=== PATIENT | male | born 1995 | race African-American/Black ===

== ENCOUNTER 2018-10-05 14:55 | Emergency (ER) | payer SELFPAY ==
[2018-10-05] MEDS ORDERED: NORMAL SALINE 1000 ML 1,000 ML IV ONE ×2 (15:11→16:40)
[2018-10-05] MEDS ORDERED: ONDANSETRON HCL INJ/PF 4 MG/2 ML SDV IV ONE (15:11)
[2018-10-05] MEDS ORDERED: FENTANYL CITRATE INJ/PF 100 MCG/2 ML AMPUL IV ONE (15:11)
--- NOTE | 2018-10-05 15:12 | ER Document Report ---
ED Medical Screen (RME) - General Chief Complaint: Abdominal Pain Stated Complaint: ABDOMINAL PAIN, VOMITTING Time Seen by Provider: 10/05/18 15:09 Mode of Arrival: Wheelchair Information source: Patient Notes: Patient is a 23-year-old male with past medical history of Crohn's who presents with severe abdominal pain and vomiting. Patient reports he has vomited one time. Patient's mother is at bedside, states that he was on Humira however that was stopped approximately 3 months ago as he had not had any acute flareups in quite some time. Patient denies any fever or diarrhea. Exam: Patient writhing around in wheelchair in pain. Abdomen is with generalized tenderness to palpation. I have greeted and performed a rapid initial assessment of this patient. A comprehensive ED assessment and evaluation of the patient, analysis of test results and completion of the medical decision making process will be conducted by additional ED providers. Dictation of this chart was performed using voice recognition software; therefore, there may be some unintended grammatical errors. TRAVEL OUTSIDE OF THE [place] IN LAST 30 DAYS: No - Related Data Allergies/Adverse Reactions: No Known Allergies Allergy (Verified 10/05/18 14:55) Past Medical History - Past Medical History Cardiac Medical History: Denies: Hx Coronary Artery Disease, Hx Heart Attack, Hx Hypertension Pulmonary Medical History: Denies: Hx Asthma, Hx Bronchitis, Hx COPD, Hx Pneumonia Neurological Medical History: Denies: Hx Cerebrovascular Accident, Hx Seizures Musculoskeltal Medical History: Denies Hx Arthritis Psychiatric Medical History: Denies: Hx Depression - Immunizations Hx Diphtheria, Pertussis, Tetanus Vaccination: Yes Physical Exam - Vital signs Vitals: Temp Pulse Resp BP Pulse Ox 97.9 F 79 20 166/71 H 100 10/05/18 14:58 10/05/18 14:58 10/05/18 14:58 10/05/18 14:58 10/05/18 14:58 Course - Vital Signs Vital signs: Temp Pulse Resp BP Pulse Ox 97.9 F 79 20 166/71 H 100 10/05/18 14:58 10/05/18 14:58 10/05/18 14:58 10/05/18 14:58 10/05/18 14:58
[2018-10-05 15:45] LABS: ABSOLUTE LYMPHOCYTES (AUTO) 0.9 10^3/uL (0.5-4.7); ABSOLUTE MONOCYTES (AUTO) 0.4 10^3/uL (0.1-1.4); ABSOLUTE NEUT (AUTO) 6.7 10^3/uL (1.7-8.2); BASOPHILS % (AUTO) 0.1 % (0-2); HEMATOCRIT 40.4 % (37.9-51.0); HEMOGLOBIN 13.3 g/dL (13.5-17.0); LYMPHOCYTES % (AUTO) 11.4 % (13-45); MEAN CORPUSCULAR HEMOGLOBIN 28.9 pg (27.0-33.4); MEAN CORPUSCULAR HGB CONC 32.9 g/dL (32.0-36.0); MEAN CORPUSCULAR VOLUME 88 fl (80-97); MONOCYTES % (AUTO) 5.2 % (3-13); PLATELET COUNT 309 10^3/uL (150-450); RED CELL DISTRIBUTION WIDTH 12.8 % (11.5-14.0); SEGMENTED NEUTROPHILS % (AUTO) 83.3 % (42-78); TOTAL CELLS COUNTED % (AUTO) 100 %
[2018-10-05 16:02] LABS: ALANINE AMINOTRANSFERASE 19 U/L (21-72); ALBUMIN 4.6 g/dL (3.5-5.0); ALKALINE PHOSPHATASE 97 U/L (38-126); ANION GAP 13 (5-19); ASPARTATE AMINO TRANSFERASE 30 U/L (17-59); BILIRUBIN,DIRECT 0.3 mg/dL (0.0-0.4); BILIRUBIN,TOTAL 1.1 mg/dL (0.2-1.3); BLOOD UREA NITROGEN 13 mg/dL (7-20); CALCIUM 9.9 mg/dL (8.4-10.2); CARBON DIOXIDE 23 mmol/L (22-30); CHLORIDE 102 mmol/L (98-107); GLUCOSE 127 mg/dL (75-110); LIPASE 59.3 U/L (23-300); POTASSIUM 4.4 mmol/L (3.6-5.0); SODIUM 138.4 mmol/L (137-145)
[2018-10-05] MEDS ORDERED: HYDROMORPHONE HCL INJ/PF 2 MG/ML AMPULE IV ONE (16:37)
[2018-10-05] MEDS ORDERED: DICYCLOMINE HCL INJ 20 MG/2 ML AMPULE IM ONE (16:38)
[2018-10-05] MEDS ORDERED: METHYLPREDNISOLONE INJ 125 MG/2 ML SDV IV ONE (16:41)
--- NOTE | 2018-10-05 16:47 | ER Document Report ---
ED GI/ - General Chief Complaint: Abdominal Pain Stated Complaint: ABDOMINAL PAIN, VOMITTING Time Seen by Provider: 10/05/18 15:09 Primary Care Provider: REMY SANTORO MD [Primary Care Provider] - Follow up as needed Mode of Arrival: Wheelchair Information source: Patient, Relative Notes: Patient is a 23-year-old male was brought to emergency room by his mother with complaint of abdominal pain. Patient states that he has had onset of pain since 4 AM this morning. His past pertinent history is for Crohn's disease with a resection done in 2016. He has not had a flareup since the resection had been completed. Patient's surgeons were from [facility]. Patient admits to having vomited x1 but is had multiple air events of dry heaving. Denies any recent diarrhea denies any bloody stool. TRAVEL OUTSIDE OF THE [place] IN LAST 30 DAYS: No - HPI Patient complains to provider of: Abdominal pain Onset: This morning Timing/Duration: Sudden Quality of pain: Cramping, Sharp, Stabbing Severity at maximum: Severe Severity in ED: Severe Pain Level: 5 Context: denies: Bad food, Out of the country travel, Recent trauma Location: LUQ, LLQ, RUQ, RLQ, Suprapubic Sexual history: Active Associated symptoms: Nausea, Vomiting. denies: Blood in stool, Fever Exacerbated by: Movement Relieved by: Denies Similar symptoms previously: Yes Recently seen / treated by doctor: No - Related Data Allergies/Adverse Reactions: No Known Allergies Allergy (Verified 10/05/18 14:55) Past Medical History - General Information source: Patient - Social History Smoking Status: Never Smoker Cigarette use (# per day): No Chew tobacco use (# tins/day): No Smoking Education Provided: No Frequency of alcohol use: None Drug Abuse: None Lives with: Family Family History: Reviewed & Not Pertinent Patient has suicidal ideation: No Patient has homicidal ideation: No - Past Medical History Cardiac Medical History: Denies: Hx Coronary Artery Disease, Hx Heart Attack, Hx Hypertension Pulmonary Medical History: Denies: Hx Asthma, Hx Bronchitis, Hx COPD, Hx Pneumonia Neurological Medical History: Denies: Hx Cerebrovascular Accident, Hx Seizures Renal/ Medical History: Denies: Hx Peritoneal Dialysis Musculoskeletal Medical History: Denies Hx Arthritis Psychiatric Medical History: Denies: Hx Depression - Immunizations Hx Diphtheria, Pertussis, Tetanus Vaccination: Yes Review of Systems - Review of Systems Constitutional: No symptoms reported EENT: No symptoms reported Cardiovascular: No symptoms reported Respiratory: No symptoms reported Gastrointestinal: See HPI, Abdominal pain, Nausea, Vomiting Genitourinary: No symptoms reported Male Genitourinary: No symptoms reported Musculoskeletal: No symptoms reported Skin: No symptoms reported Hematologic/Lymphatic: No symptoms reported Neurological/Psychological: No symptoms reported -: Yes All other systems reviewed and negative Physical Exam - Vital signs Vitals: Temp Pulse Resp BP Pulse Ox 97.9 F 79 20 166/71 H 100 10/05/18 14:58 10/05/18 14:58 10/05/18 14:58 10/05/18 14:58 10/05/18 14:58 Interpretation: Hypertensive - Notes Notes: PHYSICAL EXAMINATION: GENERAL: Patient is well-nourished well-developed 22-year-old male who is in moderate amount of distress on physical exam today. Patient is seen writhing around on the stretcher holding his belly. He is moaning or groaning and barely answers questions. Mother answered most of his questions. HEAD: Atraumatic, normocephalic. EYES: Pupils equal round and reactive to light, extraocular movements intact, sclera anicteric, conjunctiva are normal. ENT: Nares patent, oropharynx clear without exudates. Moist mucous membranes. NECK: Normal range of motion, supple without lymphadenopathy LUNGS: Breath sounds clear to auscultation bilaterally and equal. No wheezes rales or rhonchi. HEART: Regular rate and rhythm without murmurs ABDOMEN: Examination patient's abdomen shows he is diffuse tenderness to palpation and percussion in all 4 quads. Greater in the suprapubic area and mid to lower abdominal quadrants. He has moderate amount of tympany in the upper quads on supine position. He does have bowel sounds in the upper quads but bowel sounds are markedly decreased in the lower quads and especially in the mid lower quadrant area Musculoskeletal: Normal range of motion, no pitting or edema. No cyanosis. NEUROLOGICAL: Normal speech, normal gait. Normal sensory, motor exams PSYCH: Normal mood, normal affect. SKIN: Warm, Dry, normal turgor, no rashes or lesions noted. Course - Re-evaluation Re-evalutation: 10/05/18 16:50 Patient been given 50 mcg of fentanyl in triage and this barely touched his pain or discomfort. I discussed the findings on the labs with mother and patient which are relatively all good and explained to them they were looking also with other possible events that could have occurred rather than just a Crohn's flareup. Given the patient's body size and so small I have ordered a CT with IV and oral contrast. I have also go ahead and establishing a steroid base in case this is of flareup. Patient tells me he cannot remember what a flare felt like he does not know if this is his normal flareup type of presentation. 10/05/18 21:14 Patient's long course of stay in the emergency room has been primarily because of his IV and oral contrast. Took him a while to drink his contrast study and then the report came back as mostly normal with the exception of some free fluid in the pelvis. I discussed the case with Dr. Pickens and he did suggest that I contact the surgeon garbage collection supervisor just to run it by him because of the slight abnormal finding of the free fluid in the pelvis on a male. I did contact who is the surgeon on-call for the [facility]. When I mention the patient's name he informed me that he actually knows the patient very well. He ended up reviewing the labs and the CT personally and inform me that he saw nothing acute on the CT report and nothing concerning. He felt that patient probably had a gastroenteritis type of presentation R ate something bad. And caused him to have the belly pain. My reexamination of the patient's belly shows that he is comfortable laying on either left or right side. He is still mildly tender across and is still a large amount of gas and is somewhat tympanitic in the area when he is supine. But he is much improved from when he came in originally. I was then in talking to the mother and tell her my plan of care that she informed me that she actually knows the surgeon Dr. Dockery and as a matter fact that she is communications officer. I had not been informed of this previously and patient's mother informed she would rather just do our job then to have metal in us doing what we need to do. That was much appreciated. Going forward to ongoing since patient home on something for his nausea, is cramping and a little bit of pain medication. Mother is in agreement with this treatment plan. And she will contact his physician on Sunday or he she will return to ER if there is any increase in discomfort and pain. - Vital Signs Vital signs: Temp Pulse Resp BP Pulse Ox 98.1 F 82 18 148/74 H 98 10/05/18 18:00 10/05/18 18:00 10/05/18 18:00 10/05/18 18:00 10/05/18 18:00 - Laboratory Result Diagrams: 10/05/18 15:27 10/05/18 15:27 Laboratory results interpreted by me: 10/05/18 10/05/18 10/05/18 15:27 15:27 19:22 Hgb 13.3 L Seg Neutrophils % 83.3 H Lymphocytes % 11.4 L Glucose 127 H ALT 19 L Urine Ketones 80 H Discharge - Discharge Clinical Impression: Abdominal pain Qualifiers: Abdominal location: generalized Qualified Code(s): R10.84 - Generalized abdominal pain Condition: Stable Disposition: HOME, SELF-CARE Instructions: Abdominal Pain ([facility]), Antinausea Medication ([facility]), Antispasmodics ([facility]) Additional Instructions: Home and rest. Clear liquid diet for the next 24 hours. Medication as prescribed. As we discussed should you have increasing amount of pain spike a fever or have any concerns return to ER for recheck. Prescriptions: Hyoscyamine Sulfate [Levsin 0.125 Tablet] 0.25 mg PO Q4 PRN #24 tablet PRN Reason: Ondansetron [Zofran Odt 4 mg Tablet] 1 - 2 tab PO Q4H PRN #15 tab.rapdis PRN Reason: For Nausea/Vomiting Forms: Elevated Blood Pressure, Return to Work Referrals: REMY SANTORO MD [Primary Care Provider] - Follow up as needed
[2018-10-05] MEDS ORDERED: PROMETHAZINE HCL INJ 25 MG/1 ML VIAL IV ONE (17:04)
--- NOTE | 2018-10-05 19:34 | RADIOLOGY REPORT (SQ) ---
EXAM DESCRIPTION: CT ABD/PELVIS WITH IV ORAL COMPLETED DATE/TIME: 10/05/2018 7:09 pm REASON FOR STUDY: abd pain hx crohns with resection . Diffuse abdominal pain COMPARISON: CT abdomen and CT pelvis 06/18/2014 TECHNIQUE: CT scan of the abdomen and pelvis performed using helical scanning technique with dynamic intravenous contrast injection and with oral contrast. Images reviewed with lung, soft tissue, and b one windows. Reconstructed coronal and sagittal MPR images reviewed. Delayed images for evaluation of the urinary system also acquired. All images stored on PACS. All CT scanners at this facility use dose modulation, iterative reconstruction, and/or weight based d osing when appropriate to reduce radiation dose to as low as reasonably achievable (ALARA). [facility]: Dose Right [facility]: CareDose [facility]: Dose Right [facility]: Teradose 4D [facility]: [employer] CONTRAST TYPE AND DOSE: contrast/concentration: Isovue 350.00 mg/ml; Total Contrast Delivered: 69.0 ml; Total Saline Delivered: 65.0 ml RENAL FUNCTION: Creatinine 1.01 RADIATION DOSE: CT Rad equipment meets quality standard of care and radiation dose reduction techniq ues were employed. CTDIvol: 4.9 - 5.5 mGy. DLP: 540 mGy-cm.. LIMITATIONS: None. FINDINGS: LOWER CHEST: No consolidation or pleural effusion. LIVER: Normal size. No masses. No dilated ducts. SPLEEN: Normal size. No focal lesions. PANCREAS: No significant calcifications. No adjacent inflammation or peripancreatic fluid collections . Pancreatic duct not dilated. GALLBLADDER: Present. ADRENAL GLANDS: No significant masses or asymmetry. RIGHT KIDNEY AND URETER: No significant calcifications. No hydronephrosis or hydroureter. LEFT KIDNEY AND URETER: No significant calcifications. No hydronephrosis or hydroureter. AORTA AND VESSELS: No abdominal aortic aneurysm. RETROPERITONEUM: No retroperitoneal adenopathy, hemorrhage or masses. BOWEL AND PERITONEAL CAVITY: Oral contrast is seen within the stomach and nondilated small bowel loop s. Postsurgical changes are noted at bowel loops at the right lower quadrant. No focal inflammatory changes. No free air. APPENDIX: Not visualized. PELVIS: The urinary bladder is partially distended. No pelvic mass. Small amount of free pelvic flu id. ABDOMINAL WALL: No hernias. BONES: No acute findings. IMPRESSION: Small amount of pelvic ascites. Otherwise, no acute findings. TECHNICAL DOCUMENTATION: JOB ID: [id number] [facility] Quality ID # [id number]: Final reports with documentation of one or more dose reduction techniques (e.g., Au tomated exposure control, adjustment of the mA and/or kV according to patient size, use of iterative reconstruction technique) 2010 [employer]- All Rights Reserved Reading location - IP/workstation name: [email or web address]
[2018-10-05 19:49] LABS: APPEARANCE,URINE CLEAR; BILIRUBIN,URINE NEGATIVE (NEGATIVE); COLOR,URINE YELLOW; GLUCOSE, URINE NEGATIVE (NEGATIVE); KETONES,URINE 80 mg/dL (NEGATIVE); LEUKOCYTE ESTERASE,URINE NEGATIVE (NEGATIVE); NITRITE,URINE NEGATIVE (NEGATIVE); PROTEIN,URINE NEGATIVE (NEGATIVE); URINE SPECIFIC GRAVITY 1.031; UROBILINOGEN,URINE NEGATIVE mg/dL (<2.0)
[2018-10-05] MEDS ORDERED: HYDROCODONE/ACETAMINOPHEN 5-325 MG (6 TAB/ER DISP) PO PRN (21:22)
[2018-10-05 21:39] VITALS: BP 115/58
== END 2018-10-05 21:42 | disposition home or self-care (01) ==
LOC: ER 14:55
DX: R10.84 Generalized abdominal pain (principal); R11.2 Nausea with vomiting, unspecified; R10.11 Right upper quadrant pain; R10.12 Left upper quadrant pain; R10.31 Right lower quadrant pain; R10.32 Left lower quadrant pain; R10.30 Lower abdominal pain, unspecified; R10.9 Unspecified abdominal pain; K50.90 Crohn's disease, unspecified, without complications
CPT/HCPCS: 99284; 96372; 96361; 96374; 96375; 36415; 83690; 85025; 80053; 81001; 74177; J0500; J3010; J2930; J1170; J2550; J2405; J7030